=== PATIENT | male | born 1995 | race Caucasian/White ===

== ENCOUNTER → 2021-07-23 | Outpatient (CLI) | payer OTHER ==
[2021-07-23 14:21] LABS: HEMOGLOBIN 16.4 gm/dl (14.0-17.5); RED BLOOD COUNT 5.34 M/UL (4.20-5.50); WHITE BLOOD COUNT 9.6 K/UL (4.5-11.0)
[2021-07-24 07:11] LABS: A/G RATIO 1.6 (1.2-2.2); ALKALINE PHOSPHATASE, S 70 IU/L (44-121); ALT (SGPT) 16 IU/L (0-44); AST (SGOT) 17 IU/L (0-40); BILIRUBIN, TOTAL 0.3 mg/dL (0.0-1.2); BUN 10 mg/dL (6-20); BUN/CREATININE RATIO 11 (9-20); CALCIUM, SERUM 9.3 mg/dL (8.7-10.2); CARBON DIOXIDE, TOTAL 23 mmol/L (20-29); CHLORIDE, SERUM 104 mmol/L (96-106); CHOLESTEROL, TOTAL 191 mg/dL (100-199); CREATININE, SERUM 0.87 mg/dL (0.76-1.27); EGFR IF AFRICN AM 140 (>59); EGFR IF NONAFRICN AM 121 (>59); GLOBULIN, TOTAL 2.8 g/dL (1.5-4.5); GLUCOSE, SERUM 89 mg/dL (65-99); HDL CHOLESTEROL 35 mg/dL (>39); LDL CHOLESTEROL CALC 100 mg/dL (0-99); LDL/HDL RATIO 2.9 ratio (0.0-3.6); POTASSIUM, SERUM 4.4 mmol/L (3.5-5.2); PROTEIN, TOTAL, SERUM 7.3 g/dL (6.0-8.5); SODIUM, SERUM 142 mmol/L (134-144); T. CHOL/HDL RATIO 5.5 ratio (0.0-5.0); TRIGLYCERIDES 331 mg/dL (0-149); VITAMIN D, 25-HYDROXY 13.9 ng/mL (30.0-100.0)
[2021-07-24 08:14] LABS: HBSAG SCREEN Negative (Negative); HEP A AB, IGM Negative (Negative); HEP B CORE AB, IGM Negative (Negative); HEP C VIRUS AB <0.1 (0.0-0.9)
[2021-07-24 09:12] LABS: C-REACTIVE PROTEIN, QUANT 3 mg/L (0-10); ESTIM. AVG GLU (EAG) 114 mg/dL (.); HEMOGLOBIN A1C 5.6 % (4.8-5.6)
== END ==
LOC: LAB 13:37
PROVIDERS: Nurse Practitioner
DX: F41.9 Anxiety disorder, unspecified (principal); I20.9 Angina pectoris, unspecified; G89.29 Other chronic pain; Z79.899 Other long term (current) drug therapy; Z79.1 Long term (current) use of non-steroidal anti-inflammatories (NSAID)
CPT/HCPCS: 36415; 80053; 80061; 80074; 80307; 82550; 82553; 82607; 83036; 84439; 84443; 84484; 85025; 86140; 93005